=== PATIENT | male | born 1975 | race Caucasian/White ===

== ENCOUNTER 2022-04-25 23:30 | Inpatient (IN) | payer OTHER, SELFPAY ==
[2022-04-25 23:36] VITALS: BMI 25.8
[2022-04-25 23:39] VITALS: BP 138/96; PULSE 84; RESP 18; TEMP 37; O2SAT 98
--- NOTE | 2022-04-25 23:47 | W.ED.PSYCHS ---
HPI - Psych General: Chief Complaint: Psychiatric Symptoms Stated Complaint: SI Time Seen by Provider: 04/25/22 23:36 Source: patient and police Mode of arrival: other (police) Limitations: no limitations History of Present Illness: 46-year-old male who states he has had depression for 20 years. He states he has been having increasing suicidal thoughts he states that today he is at the point where he felt like he may kill himself or kill someone else. He did call police to so he could get help. He does admit to using marijuana and methamphetamine he states that he wants to get help. He has not been admitted to psych [facility] in years and is not on any medications currently. He has no other complaints at this time. Associated symptoms: Reports depression and suicidal ideation Review of Systems Const: Denies: fever(s), chills, body aches or change in appetite Eyes: Denies: blurry vision or eye discomfort ENMT: Denies: throat pain or dental pain Card: Denies: chest pain Resp: Denies: dyspnea GI: Denies: abdominal pain, nausea, vomiting or diarrhea : Denies: dysuria Musc: Denies: neck pain or back pain Skin/Breast: Denies: rash Neuro: Denies: headache(s) Psych: Reports: depression and suicidal ideation Walt/Lymph: Denies: easy bruising All/Imm: Denies: urticaria PFS ED PFSH: Medical History (Updated 04/26/22 @ 01:12 by Bolivar Parham MD) Depressed Social History (Updated 04/25/22 @ 23:49 by Bolivar Parham MD) Substance/Drug Use: current Physical Exam Const: COMMON NORMALS: no acute distress, patient oriented x3 and healthy appearing HENMT: COMMON NORMALS: normocephalic and atraumatic HEAD & SCALP: normocephalic and atraumatic Eye: COMMON NORMALS: Equal, round and reactive pupils present and EOMs intact bilaterally PUPIL: Yes Equal, round and reactive pupils present Neck/C-Spine: COMMON NORMALS: full ROM and supple Chest: COMMONS NORMALS: normal inspection of the chest and normal palpation of entire chest wall Resp: COMMON NORMALS: normal respiratory effort, No retractions, No use of accessory muscles and clear to auscultation bilaterally AUSCULTATION: clear to auscultation bilaterally Cardio: COMMON NORMALS: regular rate, regular rhythm and No murmurs present (Cardio) RATE: regular rate RHYTHM: regular rhythm GI: COMMON NORMALS: Normal to inspection, nondistended, normoactive bowel sounds present, Soft to palpation, non-tender and no masses PALPATION: Yes Soft to palpation Extremity: COMMON NORMALS: normal to inspection and full ROM Neuro: COMMON NORMALS: patient oriented x3, moves all extremities and no focal motor deficits Psych: COMMON NORMALS: mental status grossly normal and cooperative THOUGHT CONTENT: Yes Suicidality present Skin: COMMON NORMALS: no rashes or lesions noted and no wounds GENERAL SKIN EXAM: no rashes or lesions noted Course Vital Signs: Vital signs: Vital Signs Temperature 98.6 F 04/25/22 23:39 Pulse Rate 84 04/25/22 23:39 Respiratory Rate 18 04/25/22 23:39 Blood Pressure 138/96 04/25/22 23:39 Pulse Oximetry 98 04/25/22 23:39 MDM - Psych Medical Decision Making Patient presents for suicidal ideation I did place him on a 96-hour hold he is medically cleared will admit to our psychiatric unit when a bed opens up. Lab Data : 04/25/22 23:49 04/25/22 23:49 Laboratory Results WBC 7.8 10^3/uL (4.0-10.0) 04/25/22 23:49 RBC 4.28 10^6/uL (4.1-5.3) 04/25/22 23:49 Hgb 14.9 g/dL (11.7-16.6) 04/25/22 23:49 Hct 42.6 % (42.0-52.0) 04/25/22 23:49 MCV 99.5 fl (80-94) H 04/25/22 23:49 MCH 34.8 pg (28.0-34.0) H 04/25/22 23:49 MCHC 35.0 g/dL (30.0-36.0) 04/25/22 23:49 RDW 12.4 % (12.1-15.1) 04/25/22 23:49 Plt Count 282 10^3/cmm (130-400) 04/25/22 23:49 MPV 9.9 fL (7.4-10.4) 04/25/22 23:49 Neut % (Auto) 47.2 % 04/25/22 23:49 Lymph % (Auto) 40.9 % 04/25/22 23:49 [place] % (Auto) 8.8 % 04/25/22 23:49 Eos % (Auto) 2.5 % 04/25/22 23:49 Baso % (Auto) 0.5 % 04/25/22 23:49 Neut # (Auto) 3.66 10^3/uL (1.8-7.7) 04/25/22 23:49 Lymph # (Auto) 3.2 10^3/uL (0.8-4.8) 04/25/22 23:49 [place] # (Auto) 0.7 10^3/uL (0.2-0.9) 04/25/22 23:49 Eos # (Auto) 0.2 10^3/uL (0.0-0.8) 04/25/22 23:49 Baso # (Auto) 0.0 10^3/uL (0.0-0.1) 04/25/22 23:49 Nucleated RBC % (auto) 0 % 04/25/22 23:49 Nucleated RBCs # 0.0 /100WBC 04/25/22 23:49 Sodium 138 mmol/L (136-145) 04/25/22 23:49 Potassium 4.3 mmol/L (3.5-5.1) 04/25/22 23:49 Chloride 101 mmol/L (98-107) 04/25/22 23:49 Carbon Dioxide 22 mmol/L (22-29) 04/25/22 23:49 Anion Gap 19.3 (5-19) H 04/25/22 23:49 BUN 21 mg/dL (6-20) H 04/25/22 23:49 Creatinine 1.0 mg/dL (0.7-1.2) 04/25/22 23:49 GFR Calculation 79.8 mL/min (90-130) L 04/25/22 23:49 Glucose 112 mg/dL (65-115) 04/25/22 23:49 Calculated Osmolality 290 mOsm/kg (285-295) 04/25/22 23:49 Calcium 9.7 mg/dL (8.5-10.5) 04/25/22 23:49 Total Bilirubin 0.5 mg/dL (0.15-1.2) 04/25/22 23:49 AST 29 U/L (0-40) 04/25/22 23:49 ALT 23 U/L (0-41) 04/25/22 23:49 Alkaline Phosphatase 78 IU/L (40-130) 04/25/22 23:49 Total Protein 8.0 g/dL (6.6-8.7) 04/25/22 23:49 Albumin 4.8 g/dL (3.5-5.2) 04/25/22 23:49 Globulin 3.2 g/dL (1.3-4.6) 04/25/22 23:49 Salicylates 2.3 mg/dL (3-10) L 04/25/22 23:49 Acetaminophen < 5.0 ug/mL (10-30) L 04/25/22 23:49 Ethyl Alcohol < 10 mg/dL (0-10) 04/25/22 23:49 Discharge Plan Discharge Patient Disposition: Admitted As Inpatient Clinical Impression: Suicidal ideation, Depressed Coding Level of Care Code ED Financial Secretary for Nora Fwd Exam Comprehensive
[2022-04-25 23:58] LABS: Basophils % 0.5 %; Eosinophils # 0.2 10^3/uL (0.0-0.8); Eosinophils % 2.5 %; Hematocrit 42.6 % (42.0-52.0); Hemoglobin 14.9 g/dL (11.7-16.6); Lymphocytes # 3.2 10^3/uL (0.8-4.8); Lymphocytes % 40.9 %; Mean Corpuscular Hemoglobin 34.8 pg (28.0-34.0); Mean Corpuscular Volume 99.5 fl (80-94); Mean Platelet Volume 9.9 fL (7.4-10.4); Monocytes # 0.7 10^3/uL (0.2-0.9); Monocytes % 8.8 %; Neutrophils # 3.66 10^3/uL (1.8-7.7); Neutrophils % 47.2 %; Nucleated Red Blood Cells % 0 %; Platelet Count 282 10^3/cmm (130-400); Red Blood Count 4.28 10^6/uL (4.1-5.3); Red Cell Distribution Width 12.4 % (12.1-15.1); White Blood Count 7.8 10^3/uL (4.0-10.0)
[2022-04-26 00:17] LABS: Acetaminophen < 5.0 ug/mL (10-30); Alanine Aminotransferase 23 U/L (0-41); Albumin Level 4.8 g/dL (3.5-5.2); Alcohol Level < 10 mg/dL (0-10); Alkaline Phosphatase 78 IU/L (40-130); Anion Gap 19.3 (5-19); Aspartate Amino Transferase 29 U/L (0-40); Blood Urea Nitrogen 21 mg/dL (6-20); Calcium 9.7 mg/dL (8.5-10.5); Carbon Dioxide 22 mmol/L (22-29); Chloride 101 mmol/L (98-107); Globulin 3.2 g/dL (1.3-4.6); Glomerular Filtration Rate 79.8 mL/min (90-130); Glucose 112 mg/dL (65-115); Osmolality Calculated 290 mOsm/kg (285-295); Potassium 4.3 mmol/L (3.5-5.1); Salicylate 2.3 mg/dL (3-10); Sodium 138 mmol/L (136-145); Total Bilirubin 0.5 mg/dL (0.15-1.2)
[2022-04-26 02:14] LABS: Amphetamines Screen Urine Positive (Negative); Barbiturates Screen Urine Negative (Negative); Benzodiazepines Screen Urine Negative (Negative); Cocaine Screen Urine Negative (Negative); Opiate Screen Urine Negative (Negative); PCP Screen Urine Negative (Negative); THC Screen Urine Positive (Negative)
[2022-04-26 06:00] VITALS: BP 133/80; PULSE 76; RESP 16; TEMP 36.7
[2022-04-26 10:30] VITALS: BP 133/80; PULSE 76; RESP 16; TEMP 36.7
[2022-04-26 10:48] VITALS: BP 113/77; PULSE 106; RESP 16; TEMP 36.9; O2SAT 96
[2022-04-26] MEDS: OLANZapine 5 mg ODT PO (11:39)
[2022-04-26] MEDS: hyDROXYzine 25 mg Capsule 50 MG PO (11:39)
--- NOTE | 2022-04-26 12:27 | P.NPUHP_ITS ---
Providers/Chief Complaint Admitting Physician: Gamal Bullard MD Chief Complaint: suicidal ideation and depressed mood HPI NPU History of Present Illness Carroll Perez is a 46 year old male who reports that he has been having problems with suicidal ideation and depression for 20 years and reports that he has been having problems with indeciferable auditory hallucinations for several years while receiving no benefit from medications in the past. The patient reports that he is tired of dealing with the noise in his head and wishes to get help for his problems. Patient denies history of manic symptoms. He reports history of nightmares, but reports no hx of other PTSD symptoms. He reports no active plan to kill himself but reports the thoughts have been more prominent in the last month. He reports use of THC, and methamphetamine in the last few weeks. He reports a variety of somatic complaints stating having chronic nausea, stomach problems, along with back pain and reports that he has been un able to get relief of these problems. He reports some problems with low energy and low motivation. He reports some feelings of hopelessness and frequent suicidal thoughts with rising intensity over the last month without any reported triggers. He reports that he does not wish to take medication but reports that he is frustrated by the distraction of the hallucinations. Inpatient psychiatric hx: He reports that he had been hospitalized one time before at [facility] for 30 days for depression Outpatient psychiatric hx: reports being followed previously by psychiatrist in [place], [place], in the past with previous medication trials of klonopin, lithium, abilify. Reports treatment began inconsistently since 1999. Medications: none reported. Medical Hx: Hepatitis C Surgical Hx: none Allergies: nkda Drug and alcohol hx: reports occasional use of alcohol and reports methamphetamine use and THC for several years. No history of inpatient rehabilitation stays reported. Current medication: none Social History: born in [facility], no hx of reported sexual, emotional or physical trauma in childhood, raised by mother, graduated High school in [employer], attending the [employer] for 4 years from [id number] with a history of honorable discharge, partial disability for tinnitis reports living with and three times, with 5 children all living with their mothers. He has no children in the home, he reports struggles with maintaining employment. Meds NPU Home Medications Medication Instructions Recorded Confirmed Last Taken Type No Known Home Medications 04/26/22 04/26/22 Unknown History Allergies Allergy/AdvReac Type Severity Reaction Status Date / Time No Known Allergies Allergy Verified 04/26/22 12:41 PFSH NPU PFSH: Medical History (Updated 04/26/22 @ 18:58 by Gamal Bullard MD) Depressed Social History (Updated 04/25/22 @ 23:49 by Bolivar Parham MD) Substance/Drug Use: current Mental Status Exam MSE Comments: casually dressed, thin white male with multiple somatic complaints, he appeared his stated age, gait adequate, hygiene poor, no abnormal involuntary motor movements or tics. He described his mood as upset. His affect was irritable and intense. Perception: did at times appear to be r esponding to internal stimuli, with some distractibility noted during interview. no clear evidence of delusional thinking though he did appear distrustful during the interview. He was alert and oriented to person, place and time. Speech: normal rate, loud, normal prosody, Attention: fair, Insight: poor Judgment: poor, Impulse control: poor. Vitals/I&O/Wt Last Vital Signs Temp 98.3 F 04/26/22 14:00 Pulse 88 04/26/22 14:00 Resp 15 04/26/22 14:00 BP 110/70 04/26/22 14:00 Pulse Ox 97 04/26/22 14:00 Weight last 48 hrs Weight 74.843 kg Data NPU : 04/25/22 23:49 04/25/22 23:49 A&P Assessment and plan (1) Major depressive disorder with psychotic features: Status: Acute (2) Suicidal ideation: Status: Acute (3) Depressed: Status: Acute (4) Psychotic disorder: Status: Acute Plan 46 year old white male with depressed mood, suicidal ideation and auditory hallucinations very resistant to trials of medications for treatment but reporting worsening problems in the last month with polysubstance abuse reported as well. 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 4) attempt to gather collateral information Involuntary Hold Information 96 Hour Hold: 96 Hour Involuntary Admission: Yes 96 Hour Hold Ending Date: 05/01/22 96 Hour Hold Ending Time: 00:01 Attestations NPU Medical Necessity Statement*: Patient to be admitted on NPU inpatient unit expected to cross 2 midnights with likely hospitalization lasting 4-6 days. 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
[2022-04-26 14:00] VITALS: BP 110/70; PULSE 88; RESP 15; TEMP 36.8; O2SAT 97
[2022-04-26] MEDS: paliperidone ER 3 mg Tablet PO (20:05)
[2022-04-26] MEDS: trazodone 50 mg Tablet PO (20:05)
--- NOTE | 2022-04-26 20:32 | PC.NURSE ---
denied SI/HI/AVH at 1999 assessment
[2022-04-26 20:41] VITALS: BP 99/72; PULSE 106; RESP 16; TEMP 36.6; O2SAT 97
--- NOTE | 2022-04-26 22:20 | PC.NURSE ---
resting quietly eyes closed, teaching not done at this time
[2022-04-27 06:00] VITALS: BP 135/88; PULSE 83; RESP 18; TEMP 36.6; O2SAT 96
--- NOTE | 2022-04-27 10:03 | PC.NURSE ---
Pt came up to nurses station window in stated I want to be transferred and something to knock me out, this is a waste of my fucking four days . Med nurse and Doctor notified.
[2022-04-27] MEDS: OLANZapine 5 mg ODT PO (10:06)
--- NOTE | 2022-04-27 10:06 | PC.NURSE ---
PRN ZYPREXA ZYDIS 5 MG GIVEN PO PER PT C/O AGITATION. PT YELLING ABOUT HOW HE WANTS TO GET THE FUCK OUT OF HERE AND NOT BE DRUGGED UP ALL DAY! PT DEMANDING TO BE TRANSFERRED TO THE [facility] PT REQUEST RELAYED TO PHP ENGINEER AND PHYSICIAN. WILL CONT TO MONITOR
[2022-04-27] MEDS: haloperidol 5 mg Tablet PO (10:40)
--- NOTE | 2022-04-27 10:40 | PC.NURSE ---
PRN HALDOL 5 MG GIVEN PO PER REQUEST OF SOMETHING TO KNOCK ME THE FUCK OUT! AGITATED, CONT TO DEMAND TO LEAVE THE UNIT. REDIRECTED BY STAFF.
--- NOTE | 2022-04-27 10:56 | PC.NURSE ---
Addendum entered by Dory Banegas RN 04/27/22 13:38: Pt was up for lunch and ate 100%. Currently is resting in bed with eyes closed, respirations even and unlabored. Original Note: Increased Anxiety Pt came up to nurses station window pacing and throwing arms in the air. Pt stated I've never had anxiety like this, yall have got to do something, I'm crawling out of my skin here! . Med nurse and doctor notified. Pt continues to pace with arms crossed by nurses station. Gave 50 mg Diphehydramine in the R deltoid. SIMBA Drake gave 5 mg Haloperidol and 2mg Lorazepam in the L deltoid. Pt sitting on side of bed.
[2022-04-27] MEDS: LORazepam 2 mg/mL INJ 1 mL IM (11:04)
[2022-04-27] MEDS: haloperidol inj 5 mg/mL INJ 1 mL IM (11:04)
[2022-04-27] MEDS: diphenhydrAMINE 50 mg/mL SDV 1mL IM (11:04)
--- NOTE | 2022-04-27 11:28 | PC.NURSE ---
BEHAVIOR THIS AM AT APPROXIMATELY 1030 PT BEGAN TO YELL AND SCREAM AT STAFF SAYING, THIS IS A WASTE OF MY FUCKING TIME TIME, YOU EITHER LET ME OUT OR KNOCK ME OUT. PT WAS EDUCATED AND GIVEN THE OPPORTUNITY TO CALM DOWN AND PRN MEDS WERE GIVEN BY MED NURSE. 15 MINUTES LATER PT CONTINUED TO YELL, SCREAM AND CUSS AT STAFF DEMANDING HE BE KNOCKED OUT. THIS RN ATTEMPTED TO SPEAK WITH PT AND LET HIM KNOW THAT HE HAS ALREADY HAD MEDICATIONS TO DECREASE HIS ANXIETY PT STATES I DON'T CARE, YOU BETTER GIVE ME SOMETHING OR ITS GOING TO GET BAD FOR ALL OF YOU. THIS RN NOTIFIED DR. CHAVEZ AND HE STATED TO GO AHEAD AND GIVE 2 MG ATIVAN, 5 MG OF HALDOL AND 50 MG OF BENADRYL. AT 1104 THIS RN AND RN ORIENTEE WENT TO PT ROOM AND GAVE MEDICATION ORDERED SEE MAR FOR DETAILS. ALL QUESTIONS ANSWERED AND SUPPORT VOICED. AT 1235 PT WAS IN BED RESTING WITH EYES CLOSED.
[2022-04-27 14:00] VITALS: BP 129/87; PULSE 88; RESP 20; TEMP 36.4; O2SAT 98
--- NOTE | 2022-04-27 18:05 | P.NPUPN_ITS ---
Subjective NPU Subjective: Patient presents today agitated and not conducive to interview. As we discussed sitting down once treatment team was over he was escalating and reporting that if we cannot help him with his agitation people would get injured. As needed medications were administered and he was able to calm down but was then not participatory in assessment. Mental Status Exam MSE Comments: This is a well-nourished, well-developed white male with adequate dress, grooming and eye contact. No abnormal movements except for some significant psychomotor agitation. Uncooperative with exam in extreme distress. Speech was increased rate and volume. Mood described as agitated, affect congruent. Thought process organized, thought content: patient reported significant feelings of aggression but not rogerio suicidal or homicidal ideations reported there were no delusions reported or noted, he did not appear to be int ernally preoccupied. Attention and concentration were limited and memory appeared unreliable but none were formally tested. He is alert and oriented times three. Insight and judgment appeared impaired and impulse control appeared impaired. Vitals/I&O/Wt Last Vital Signs Temp 97.5 F L 04/27/22 14:00 Pulse 88 04/27/22 14:00 Resp 20 H 04/27/22 14:00 BP 129/87 04/27/22 14:00 Pulse Ox 98 04/27/22 14:00 Weight last 48 hrs Weight 74.843 kg Data NPU : 04/25/22 23:49 04/25/22 23:49 A&P Assessment and plan (1) Psychotic disorder: Status: Acute (2) Major depressive disorder with psychotic features: Status: Acute (3) Suicidal ideation: Status: Acute Plan 46 year old white male with depressed mood, suicidal ideation and auditory hallucinations very resistant to trials of medications for treatment but reporting worsening problems in the last month with polysubstance abuse reported as well. 1. Continue current medication. Increase Invega to 6 mg nightly. 2. Continue every 15 minute checks for safety. 3. Encourage individual, group and milieu therapies. 4. Encourage sober living treatment after discharge at the highest level of care to which he is willing to commit. Involuntary Hold Information 96 Hour Hold: 96 Hour Involuntary Admission: Yes 96 Hour Hold Ending Date: 05/01/22 96 Hour Hold Ending Time: 00:01 Attestations NPU Medical Necessity Statement*: Inpatient hospitalization is medically necessary and the clinically appropriate intervention at this time. We will monitor medication to make changes as indicated. Likely length of stay 3 to 5 days. Coding Level of Care Code Acute Bowling Ball Weigher And Packer for g Fwd Diagnoses Psychotic disorder F29 Major depressive disorder with psychotic features F32.3 Suicidal ideation R45.851
[2022-04-27 20:16] VITALS: BP 115/75; PULSE 89; RESP 15; O2SAT 96
[2022-04-27] MEDS: paliperidone ER 3 mg Tablet 6 MG PO (20:37)
[2022-04-28 06:00] VITALS: BP 111/74; PULSE 101; RESP 15; TEMP 36.8; O2SAT 95
[2022-04-28 14:00] VITALS: RESP 18
--- NOTE | 2022-04-28 16:18 | W.PM.NPUPNS ---
Subjective NPU Subjective: Patient presents today more cogent and able to assess his current situation. He identified his desires not to be hospitalized longer than necessary and his willingness to adhere to medication and to the unit standards in a hope to get out so that he can be back in work by Wednesday. We discussed the treatment teams open this to work with him given his desire not to be transferred to [facility] per the [place] request. Mental Status Exam MSE Comments: This is a well-nourished, well-developed white male with adequate dress, grooming and eye contact. No abnormal movements except for mild psychomotor agitation. Cooperative with exam in moderate distress. Speech was increased rate and volume. Mood described as Okay, affect congruent. Thought process organized, thought content: patient denied suicidal or homicidal ideations , and there were no delusions reported or noted, he did not appear to be internally preoccupied. Attention and concentration were improving and memory appeared more reliable but none were formally tested. He is alert and oriented times three. Insight and judgment appeared limited but improving and impulse control appeared improving. Vitals/I&O/Wt Last Vital Signs Temp 97.3 F L 04/28/22 20:23 Pulse 80 04/28/22 20:23 Resp 17 04/28/22 20:23 BP 130/82 04/28/22 20:23 Pulse Ox 98 04/28/22 20:23 O2 Del Method 04/26/22 10:57 Data NPU : 04/25/22 23:49 04/25/22 23:49 A&P Assessment and plan (1) Psychotic disorder: Status: Acute (2) Major depressive disorder with psychotic features: Status: Acute (3) Suicidal ideation: Status: Acute Plan 46 year old white male with depressed mood, suicidal ideation and auditory hallucinations very resistant to trials of medications for treatment but reporting worsening problems in the last month with polysubstance abuse reported as well. 1. Continue current medication. Increase Invega to 6 mg nightly. 2. Continue every 15 minute checks for safety. 3. Encourage individual, group and milieu therapies. 4. Encourage sober living treatment after discharge at the highest level of care to which he is willing to commit. Involuntary Hold Information 96 Hour Hold: 96 Hour Involuntary Admission: Yes 96 Hour Hold Ending Date: 05/01/22 96 Hour Hold Ending Time: 00:01 Attestations NPU Medical Necessity Statement*: Inpatient hospitalization is medically necessary and the clinically appropriate intervention at this time. We will monitor medication to make changes as indicated. Likely length of stay 2-4 days. Coding Level of Care Code Acute Manager Of Operations for [facility] Fwd Diagnoses Psychotic disorder F29 Major depressive disorder with psychotic features F32.3 Suicidal ideation R45.851
[2022-04-28] MEDS: paliperidone ER 3 mg Tablet 6 MG PO (20:16)
[2022-04-28] MEDS: trazodone 50 mg Tablet PO (20:16)
[2022-04-28 20:23] VITALS: BP 130/82; PULSE 80; RESP 17; TEMP 36.3; O2SAT 98
[2022-04-28] MEDS: hyDROXYzine 25 mg Capsule 50 MG PO (21:58)
[2022-04-29 06:00] VITALS: BP 130/82; PULSE 80; RESP 17; TEMP 36.3; O2SAT 98
[2022-04-29 06:50] VITALS: BP 117/79; PULSE 86; RESP 16; TEMP 36.6; O2SAT 98
[2022-04-29 13:37] LABS: Quest SARS-CoV-2 RNA NOT DETECTED (NOT DETECTED)
[2022-04-29 14:00] VITALS: BP 111/72; PULSE 119; RESP 20; TEMP 36.6; O2SAT 98
[2022-04-29] MEDS: OLANZapine 5 mg ODT PO (14:07)
--- NOTE | 2022-04-29 14:08 | PC.NURSE ---
Pt experiencing anxiety, administered Zyprexa Zydis 5mg.
--- NOTE | 2022-04-29 16:02 | P.NPUPN_ITS ---
Subjective NPU Subjective: Patient presented today reporting that he is greatly improved. His affect matches. Staff report of no problems or concerns since his volatile entry onto the unit. His plan for work and treatment moving forward. He reports that he is eating sleeping well and we discussed discharge in the mo rning. Mental Status Exam MSE Comments: This is a well-nourished, well-developed white male with adequate dress, grooming and eye contact. No abnormal movements. Cooperative with exam in no acute distress. Speech was increased rate and volume. Mood described as better, affect congruent. Thought process organized, thought content: patient denied suicidal or homicidal ideations , and there were no delusions reported or noted, he did not appear to be internally preoccupied. Attention and concentration were improving and memory appeared more reliable but none were formally tested. He is alert and oriented times three. Insight and judgment appeared limited but improving and impulse control appeared improving. Vitals/I&O/Wt Last Vital Signs Temp 97.8 F 04/29/22 06:50 Pulse 86 04/29/22 06:50 Resp 16 04/29/22 06:50 BP 117/79 04/29/22 06:50 Pulse Ox 98 04/29/22 06:50 O2 Del Method 04/26/22 10:57 Data NPU : 04/25/22 23:49 04/25/22 23:49 A&P Assessment and plan (1) Psychotic disorder: Status: Acute (2) Major depressive disorder with psychotic features: Status: Acute (3) Suicidal ideation: Status: Acute Plan 46 year old white male with depressed mood, suicidal ideation and auditory hallucinations very resistant to trials of medications for treatment but reporting worsening problems in the last month with polysubstance abuse reported as well. 1. Continue current medication. Increase Invega to 6 mg nightly. 2. Continue every 15 minute checks for safety. 3. Encourage individual, group and milieu therapies. 4. Encourage sober living treatment after discharge at the highest level of care to which he is willing to commit. 5. Plan for discharge in the morning. Involuntary Hold Information 96 Hour Hold: 96 Hour Involuntary Admission: Yes 96 Hour Hold Ending Date: 05/01/22 96 Hour Hold Ending Time: 00:01 Attestations NPU Medical Necessity Statement*: Inpatient hospitalization is medically necessary and the clinically appropriate intervention at this time. We will monitor medication to make changes as indicated. Likely length of stay 1-3 days. Coding Level of Care Code Acute Roofing Tile Sorter for g Fwd Diagnoses Psychotic disorder F29 Major depressive disorder with psychotic features F32.3 Suicidal ideation R45.851
[2022-04-29 19:34] VITALS: BP 112/75; PULSE 108; RESP 18; TEMP 36.6; O2SAT 98
[2022-04-29] MEDS: trazodone 50 mg Tablet PO (20:48)
[2022-04-29] MEDS: paliperidone ER 3 mg Tablet 6 MG PO (20:48)
[2022-04-30 06:00] VITALS: BP 113/72; PULSE 86; RESP 18; TEMP 36.6; O2SAT 96
--- NOTE | 2022-04-30 06:36 | PC.NURSE ---
Patient was medicated last night with Trazadone 50 mg po with good effect.
[2022-04-30 11:21] VITALS: BP 113/72; PULSE 86; RESP 18; TEMP 36.6; O2SAT 96
--- NOTE | 2022-04-30 11:51 | P.NPUDS_ITS ---
Diagnoses at Discharge Discharge Diagnosis (1) Psychotic disorder: Status: Acute (2) Major depressive disorder with psychotic features: Status: Acute (3) Suicidal ideation: Status: Resolved Reason for Visit Reason for Visit: suicidal ideation and depressed mood Brief History: History of Present Illness Carroll Perez is a 46 year old male who reports that he has been having problems with suicidal ideation and depression for 20 years and reports that he has been having problems with indeciferable auditory hallucinations for several years while receiving no benefit from medications in the past. The patient reports that he is tired of dealing with the noise in his head and wishes to get help for his problems. Patient denies history of manic symptoms. He reports history of nightmares, but reports no hx of other PTSD symptoms. He reports no active plan to kill himself but reports the thoughts have been more prominent in the last month. He reports use of THC, and methamphetamine in the last few weeks. He reports a variety of somatic complaints stating having chronic nausea, stomach problems, along with back pain and reports that he has been unable to get relief of these problems. He reports some problems with low energy and low motivation. He reports some feelings of hopelessness and frequent suicidal thoughts with rising intensity over the last month without any reported triggers. He reports that he does not wish to take medication but reports that he is frustrated by the distraction of the hallucinations. Inpatient psychiatric hx: He reports that he had been hospitalized one time before at [facility] for 30 days for depression Outpatient psychiatric hx: reports being followed previously by psychiatrist in [place], [place], in the past with previous medication trials of klonopin, lithium, abilify. Reports treatment began inconsistently since 1999. Medications: none reported. Medical Hx: Hepatitis C Surgical Hx: none Allergies: nkda Drug and alcohol hx: reports occasional use of alcohol and reports methamphetamine use and THC for several years. No history of inpatient rehabilitation stays reported. Current medication: none Social History: born in [facility], no hx of reported sexual, emotional or physical trauma in childhood, raised by mother, graduated High school in [place], attending [employer] for 4 years from [id number] with a history of honorable discharge, partial disability for tinnitis reports living with and three times, with 5 children all living with their mothers. He has no children in the home, he reports struggles with maintaining employment. Hospital Course Hospital Course He slowly acclimated to the individual, group and milieu therapies provided. Initially he was quite volatile and needed as needed medications to contain his irritability anger and aggression. Initially there was a plan to transfer him to the [facility] given that he is a . But then refused that but did agree to engage in treatment here adherent to the recommendations of the treatment team. He started Invega oral and showed a positive response and was switched to the long-acting injection. He received his 234 mg IM to the deltoid initial loading dose and was given follow-up appointments and refills for the second loading dose in 1 week as well as an additional month supply. He had marked improvement while here, and was able to contract for safety outside of the hospital prior to discharge. During the hospitalization, patient had routine laboratory studies which were within normal limits except for few outliers. Additionally there was a general medical evaluation which was also within normal limits and revealed no new acute processes. Discharge Summary: At the time of discharge, he denied psychosis or lethality. Mood and anxiety were well managed. Patient endorsed a plan to avoid all drugs of abuse and follow-up with the aftercare recommendations of the treatment team. Patient was evaluated and deemed to be absent credible lethality, and had achieved the maximum benefit from an inpatient hospitalization, so was discharged. Involuntary Hold Information 96 Hour Hold: 96 Hour Involuntary Admission: Yes 96 Hour Hold Ending Date: 05/01/22 96 Hour Hold Ending Time: 00:01 Mental Status Exam MSE Comments: This is a well-nourished, well-developed white male with adequate dress, grooming and eye contact. No abnormal movements. Cooperative with exam in no acute distress. Speech was increased rate and volume. Mood described as better, affect congruent. Thought process organized, thought content: patient denied suicidal or homicidal ideations , and there were no delusions reported or noted, he did not appear to be internally preoccupied. Attention and concentration were improving and memory appeared more reliable but none were formally tested. He is alert and oriented times three. Insight and judgment appeared limited but improving and impulse control appeared improving. Discharge Data Studies Completed and Pending: Laboratory Results WBC 7.8 10^3/uL (4.0- 10.0) 04/25/22 23:49 RBC 4.28 10^6/uL (4.1 -5.3) 04/25/22 23:49 Hgb 14.9 g/dL (11.7-1 6.6) 04/25/22 23:49 Hct 42.6 % (42.0-52.0 ) 04/25/22 23:49 MCV 99.5 fl (80-94) H 04/25/22 23:49 MCH 34.8 pg (28.0-34. 0) H 04/25/22 23:49 MCHC 35.0 g/dL (30.0-3 6.0) 04/25/22 23:49 RDW 12.4 % (12.1-15.1 ) 04/25/22 23:49 Plt Count 282 10^3/cmm (130 -400) 04/25/22 23:49 MPV 9.9 fL (7.4-10.4) 04/25/22 23:49 Neut % (Auto) 47.2 % 04/25/22 23:49 Lymph % (Auto) 40.9 % 04/25/22 23:49 Hidalgo % (Auto) 8.8 % 04/25/22 23:49 Eos % (Auto) 2.5 % 04/25/22 23:49 Baso % (Auto) 0.5 % 04/25/22 23:49 Neut # (Auto) 3.66 10^3/uL (1.8 -7.7) 04/25/22 23:49 Lymph # (Auto) 3.2 10^3/uL (0.8- 4.8) 04/25/22 23:49 Hidalgo # (Auto) 0.7 10^3/uL (0.2- 0.9) 04/25/22 23:49 Eos # (Auto) 0.2 10^3/uL (0.0- 0.8) 04/25/22 23:49 Baso # (Auto) 0.0 10^3/uL (0.0- 0.1) 04/25/22 23:49 Nucleated RBC % (a uto) 0 % 04/25/22 23:49 Nucleated RBCs # 0.0 /100WBC 04/25/22 23:49 Sodium 138 mmol/L (136-1 45) 04/25/22 23:49 Potassium 4.3 mmol/L (3.5-5 .1) 04/25/22 23:49 Chloride 101 mmol/L (98-10 7) 07/23/22 23:49 Carbon Dioxide 22 mmol/L (22-29) 04/25/22 23:49 Anion Gap 19.3 (5-19) H 04/25/22 23:49 BUN 21 mg/dL (6-20) H 04/25/22 23:49 Creatinine 1.0 mg/dL (0.7-1. 2) 04/25/22 23:49 GFR Calculation 79.8 mL/min (90-1 30) L 04/25/22 23:49 Glucose 112 mg/dL (65-115 ) 04/25/22 23:49 Calculated Osmolal ity 290 mOsm/kg (285- 295) 04/25/22 23:49 Calcium 9.7 mg/dL (8.5-10 .5) 04/25/22 23:49 Total Bilirubin 0.5 mg/dL (0.15-1 .2) 04/25/22 23:49 AST 29 U/L (0-40) 04/25/22 23:49 ALT 23 U/L (0-41) 04/25/22 23:49 Alkaline Phosphata se 78 IU/L (40-130) 04/25/22 23:49 Total Protein 8.0 g/dL (6.6-8.7 ) 04/25/22 23:49 Albumin 4.8 g/dL (3.5-5.2 ) 04/25/22 23:49 Globulin 3.2 g/dL (1.3-4.6 ) 04/25/22 23:49 Salicylates 2.3 mg/dL (3-10) L 04/25/22 23:49 Urine Opiates Scre en Negative ng/mL (N egative) 04/26/22 02:00 Acetaminophen < 5.0 ug/mL (10-3 0) L 04/25/22 23:49 Ur Barbiturates Sc reen Negative ng/mL (N egative) 04/26/22 02:00 Ur Phencyclidine S crn Negative ng/mL (N egative) 04/26/22 02:00 Ur Amphetamines Sc reen Positive ng/mL (N egative) H 04/26/22 02:00 U Benzodiazepines Scrn Negative ng/mL (N egative) 04/26/22 02:00 Urine Cocaine Scre en Negative ng/mL (N egative) 04/26/22 02:00 U Marijuana (THC) Screen Positive ng/mL (N egative) H 04/26/22 02:00 Ethyl Alcohol < 10 mg/dL (0-10) 04/25/22 23:49 Coronavirus 229E ( PCR) Cancelled 04/28/22 13:06 SARS-CoV-2 (PCR) Cancelled 04/28/22 13:06 SARS-CoV-2 RNA (RT -PCR) Not detected (NO T DETECTED) 04/28/22 13:06 Misc Test Referenc e Cancelled 04/28/22 13:06 Vitals: Last Vital Signs Temp 97.9 F 04/30/22 11:21 Pulse 86 04/30/22 11:21 Resp 18 04/30/22 11:21 BP 113/72 04/30/22 11:21 Pulse Ox 96 04/30/22 11:21 O2 Del Method 04/30/22 06:00 Discharge Plan Discharge Patient Disposition: Home Prescriptions: New Invega Sustenna 156 mg/mL syringe 156 mg IM Q30D 30 Days Qty: 1 2RF Rx Instructions: 05/07/22 next dose IM (to deltoid as is 2nd loading dose). Next 06/06/22 IM and q30d after trazodone 50 mg Tablet 50 mg PO BEDTIME PRN (Reason: Sleep) 30 Days Qty: 30 1RF No Action No Known Home Medications Discharge Orders: Discharge Order (Routine); Ordered 04/30/22 Ordered By: Gigi Croft Referrals: [facility] [Other] - 05/05/22 1:00 pm (Made referral for therapy. Ask for social work administrator while there. ) [facility] [Other] (Call for [place] fianancial assistance. ) Discharge Diet: Regular Discharge Activity: Resume usual activity Patient Instructions: Methamphetamine Abuse, Depression (DC), Help Prevent Suicide (DC), Opioid Safety Discharge Attestations NPU Time Spent in Discharge Care*: less than 30 min Specific Discharge Activities: Specific discharge activities: educating patient, discussing with case assistant/social workers/dc planners, documenting/other paperwork and evaluating patient/reviewing data Coding Level of Care Code Acute Chg FW DC note Diagnoses Psychotic disorder F29 Major depressive disorder with psychotic features F32.3 Suicidal ideation R45.851
[2022-04-30] MEDS: paliperidone palmitate 234 mg Syringe IM (12:29)
--- NOTE | 2022-04-30 12:32 | PC.NURSE ---
DAYAMI SUSTENNA 234 MG GIVEN IM ORDERED BY PHYSICIAN, INJECTION GIVEN IN RIGHT DELTOID. PT TOLERATED INJECTION WELL, WILL CONT TO MONITOR INJECTION SITE FOR ANY REDNESS, SWELLING OR IRRITATION LOT [id number] EXP 06/2023
[2022-04-30 13:14] VITALS: BP 133/78; PULSE 78; RESP 20; TEMP 36.6; O2SAT 98
== END 2022-04-30 13:24 | disposition home or self-care (01) | DRG 885 ==
LOC: ER 04-26 01:12 → NP 04-26 10:14
PROVIDERS: Admitting Provider Psychiatry & Neurology Psychiatry; Emergency Provider Emergency Medicine; Visit Provider Psychiatry & Neurology Psychiatry
DX: F33.3 Major depressive disorder, recurrent, severe with psychotic symptoms (principal); R45.851 Suicidal ideations; F15.10 Other stimulant abuse, uncomplicated; F12.10 Cannabis abuse, uncomplicated; Z86.19 Personal history of other infectious and parasitic diseases
CPT/HCPCS: 80053; 80306; 80307; 85025; 87635; 96372; 97150; 97165; 99285; J1200; J1630; J2060

== ENCOUNTER 2025-01-29 12:23 | Emergency (ER) | payer OTHER, SELFPAY ==
--- NOTE | 2025-01-29 12:30 | ECG_ITS ---
[facility] Test Date: 2025-01-29 Pat Name: Carroll Perez Department: Room: Gender: Male Battery [employer]ger: : 1975 Requested By: Obey Kilgore Order Number: [id number] Brigette MD: Shawn Del Castillo M.D. Measurements Intervals [place] Rate: 78 P: 16 MA: 184 QRS: 46 QRSD: 83 T: 38 QT: 390 QTc: 446 Interpretive Statements SINUS RHYTHM No previous ECG available for comparison Electronically Signed On 02-05-2025 10:42:44 CDT by Shawn Del Castillo M.D. [id number]
[2025-01-29 12:32] VITALS: BP 131/86; PULSE 75; RESP 20; TEMP 36.7; O2SAT 99; BMI 27.3
== END 2025-01-29 13:59 | disposition left against medical advice (07) ==
LOC: ER 12:29
PROVIDERS: Emergency Provider Family Medicine
DX: Z01.89 Encounter for other specified special examinations (principal); Z53.21 Procedure and treatment not carried out due to patient leaving prior to being seen by health care provider
CPT/HCPCS: 93005